=== PATIENT | female | born 1950 ===

== ENCOUNTER 2021-03-09 06:38 | Day surgery (SDC) | payer OTHER | END 2021-03-09 11:25 | disposition home or self-care (01) | LOC: AMB-ENDOS 06:38 | PROVIDERS: ATTEND Surgery | DX: K62.89 Other specified diseases of anus and rectum (principal); Z20.822 Contact with and (suspected) exposure to COVID-19; Z12.11 Encounter for screening for malignant neoplasm of colon ==